=== PATIENT | female | born 1970 | race Caucasian/White ===

== ENCOUNTER → 2016-08-18 | Outpatient (CLI) | payer OTHER ==
[2016-02-25 12:00] VITALS: BP 140/86
[~2016-08-18] MED LIST: ASPI325T4 PO; BUDE10.22 IH; CALC625T20 PO; CETI10CA PO; CHLO1CAP PO; CLON1TAB3 PO; CYCL10TA2 PO; DOCU-27 PO; FLUT9.9S NS; LACT1CAP29 PO; LACT1CAP8 PO; LINA145C PO; METH-38 PO; OMEP40CA5 PO; RIZA10TA PO; TRAM50TA PO
--- NOTE | 2016-08-18 15:46 | KCIC ---
PROCEDURE Two view cervical spine HISTORY Cervical fusion February 22, 2016. Right side neck pain. COMPARISON April 13, 2016. FINDINGS Fusion from C4 through C6 with anterior plate and screws, and interbody spacers. Alignment intact. No acute fracture or bone destruction. The other disc spaces are stable. Prevertebral soft tissues unremarkable. IMPRESSION Stable postfusion cervical spine. Electronically signed by: Hernan Ritchie MD (Aug 18, 2016 15:45:17)
== END | disposition home or self-care (01) ==
LOC: KCIC 12:14
PROVIDERS: ATTEND Neurological Surgery
DX: M54.2 Cervicalgia (principal); Z98.1 Arthrodesis status
CPT/HCPCS: 72040